=== PATIENT | female | born 1975 | race Two or more races ===

== ENCOUNTER → 2016-12-14 08:05 | Outpatient (CLI) | payer MEDICAID ==
[~2016-12-14 08:05] MED LIST: BACLOFEN10 MG PO; HYDROCODONE-APA1 TAB PO; MIRAPEX0.25 MG PO; PREVACID30 MG PO; ZOLOFT100 MG PO; ZYRTEC10 MG PO; [UNRECOGNIZED DRUG - OTHER]
--- NOTE | 2016-12-15 08:23 | EMG ---
PATIENT:PADMINI FRANZ DATE OF SERVICE: 12/14/16 MEDICAL RECORD: [id number] DATE OF : 77 LOCATION: [facility] ADMISSION DATE: REFERRING PHYSICIAN: MILAN VALDES MD INTERPRETING PHYSICIAN: MIKIE OSBORN MD DATE OF SERVICE: 12/14/2016 REFERRED BY: Dr. Valdes as an outpatient. DATE OF : 1975 DATE OF EXAMINATION: 12/14/2016 ELECTROMYOGRAPHIC DATA: Electromyographic examination is limited to both upper extremities. In the right upper extremity, right median motor stimulation elicits a compound motor action potential with a distal latency of 4.9 milliseconds, peak amplitude of 7 millivolts, and calculated conduction velocity of 51 meters per second. Right ulnar motor stimulation elicits a compound motor action potential with a distal latency of 2.7 milliseconds, peak amplitude of 8 millivolts, and calculated conduction velocity of 65 meters per second. Right ulnar motor stimulation across the elbow fails to elicit evidence of conduction block at this level. Antidromic right median and sensory stimulation elicits a response with a distal latency of 5.2 milliseconds, amplitude of 8 microvolts and the calculated conduction velocity of 50 meters per second. Antidromic right ulnar sensory stimulation elicits a response with a distal latency of 3.0 milliseconds, amplitude of 11 microvolts and calculated conduction velocity of 58 meters per second. The right median F wave has a latency of 29 milliseconds. In the left upper extremity, left median motor stimulation elicits a compound motor action potential with a distal latency of 3.4 milliseconds, peak amplitude of 9 millivolts, and calculated conduction velocity of 53 meters per second. Left ulnar motor stimulation elicits a compound motor action potential with a distal latency of 2.6 milliseconds, peak amplitude of 9 millivolts, and calculated conduction velocity of 57 meters per second. Left ulnar motor stimulation across the elbow fails to elicit evidence of conduction block at this level. Antidromic left median sensory stimulation elicits a response with a distal latency of 3.8 milliseconds, amplitude of 20 microvolts and the calculated conduction velocity of 54 meters per second. The antidromic left ulnar sensory stimulation elicits a response with a distal latency of 3.2 milliseconds, amplitude of 30 microvolts and the calculated conduction velocity of 57 meters per second. The left median F wave has a latency of 29 milliseconds. Needle electrode examination is limited to both upper extremities as well. Muscles interrogated include the abductor pollicis brevis, first dorsal interosseous, abductor digiti minimi, pronator teres, biceps brachii, triceps and deltoid. There is no abnormality of insertional activity and no abnormal spontaneous activity is seen in all muscles interrogated. Motor unit potential morphology and the pattern of motor unit potential firing and recruitment is normal in all muscles sampled. 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 On the left, all values fall within normal limits. There is a discrepancy between the median motor and sensory distal latencies as compared to the ipsilateral ulnar motor and sensory distal latencies. While not diagnostic, this is suggestive of minimally severe carpal tunnel syndrome on the left as well. There is no electrical evidence of a superimposed cervical radiculopathy or other lesion of the lower motor neuron in the upper extremities at this time. There is no evidence of active denervation. TRANSINT:[id number] Voice Confirmation ID: [id number] DOCUMENT ID: [id number] MIKIE OSBORN MD at 0823 CC: [id number] DICTATION DATE: 12/14/16907 RETAIL MAINTENANCE TECHNICIAN: 12/14/16 1019 DEP CLI 12/14/16 [facility] [address] [place] [address]
[2017-01-23 07:23] VITALS: BMI 38.7
== END | disposition home or self-care (01) ==
LOC: D.CN 08:00
DX: R20.0 Anesthesia of skin (principal)

== ENCOUNTER 2017-01-23 06:44 | Day surgery (SDC) | payer MEDICAID ==
[~2017-01-23] VITALS: Ht 162.6 cm; Wt 102.1 kg
[~2017-01-23 06:44] MED LIST changes: -BACLOFEN10 MG PO; -HYDROCODONE-APA1 TAB PO; -PREVACID30 MG PO
[2017-01-23] MEDS ORDERED: BACLOFEN10 MG PO (07:19)
[2017-01-23] MEDS ORDERED: PREVACID30 MG PO (07:19)
[2017-01-23 07:20] LABS: HEMATOCRIT 38.3 % (36.0-48.0); HEMOGLOBIN 12.4 g/dL (12-16)
[2017-01-23 07:23] VITALS: BP 132/79; Ht 162.6 cm; Wt 102.1 kg
[2017-01-23] MEDS ORDERED: HYDROCODONE-APA1 TAB PO (09:38)
--- NOTE | 2017-01-23 11:36 | OP ---
PATIENT NAME: PADMINI FRANZ MEDICAL RECORD: [id number] :[birth year] LOCATION:[facility] ADMISSION DATE: SURGEON: YOLANDE DAVENPORT MD DATE OF OPERATION: 01/23/2017 PREOPERATIVE DIAGNOSIS: Right carpal tunnel syndrome. POSTOPERATIVE DIAGNOSIS: Right carpal tunnel syndrome. PROCEDURE PERFORMED: Right carpal tunnel release. SURGEON: Anthony Davenport MD. ANESTHESIA: TIVA with local. CONDITION: She tolerated the procedure well, was transferred to recovery room in stable condition at termination of procedure. INDICATIONS: This is a pleasant 41-year-old female with numbness and tingling in her median nerve distribution. She has positive EMG. This has been bothering her enough that she wants to go ahead and have it released. We discussed risks, benefits, and alternatives. She understood and wished to proceed. OPERATIVE REPORT: The patient was taken to the operating room, placed in a supine position. TIVA anesthesia was obtained. Right arm was confirmed to be the correct arm, following which she was prepped and draped in the normal fashion. After this was accomplished, she had her carpal tunnel region infiltrated locally with 0.25% Marcaine and 0.5% lidocaine plain. I then folded her ring finger down and made a bella on the radial side of the ring finger then made an incision in her palm in line essentially with this. This was taken down. Transverse carpal ligament was identified. A hemostat was placed below it. Transverse carpal ligament was then transected down onto the hemostat. Once this was done, the nerve was visualized. It was clearly intact, visualized that the ligament was released. I therefore irrigated and closed it with 3-0 Prolene, placed her in a volar splint. She was awakened and transferred to the recovery room in stable condition, having tolerated the procedure well. TRANSINT:[id number] Voice Confirmation ID: [id number] DOCUMENT ID: [id number] YOLANDE DAVENPORT MD at 1136 CC: [id number] DICTATION DATE: 01/23/17 0943 ENGRAVER PANTOGRAPH: 01/23/17 1049 [facility] [address] [place] [address]
--- NOTE | 2017-01-23 12:39 | NUR ---
1045 IV DC WITH CATHER TIP INTACT
== END 2017-01-23 11:00 | disposition home or self-care (01) ==
LOC: D.OPS 06:44 → D.PAN 08:30 → D.OPS 09:00 → D.PAN 11:30 → D.OPS 02-09 09:00
PROVIDERS: Anesthesiology
DX: G56.01 Carpal tunnel syndrome, right upper limb (principal)

== ENCOUNTER 2019-02-16 01:18 | Emergency (ER) | payer BC ==
[~2019-02-16] VITALS: Ht 162.6 cm; Wt 104.5 kg
[~2019-02-16 01:18] MED LIST changes: +BACLOFEN10 MG PO; +HYDROCODONE-APA1 TAB PO; +PREVACID30 MG PO
[2019-02-16 01:25] VITALS: Ht 162.6 cm; Wt 104.5 kg
[2019-02-16] MEDS ORDERED: PROZAC20 MG PO (01:27)
[2019-02-16] MEDS ORDERED: OMEPRAZOLE20 M1 (01:27)
[2019-02-16] MEDS ORDERED: LISINOPRIL30 MG PO (01:28)
[2019-02-16 02:03] LABS: BASOPHILS 0.3 % (0-2); EOSINOPHILS 4.8 % (0-7); HEMATOCRIT 33.7 % (36.0-48.0); HEMOGLOBIN 10.9 g/dL (12-16); LYMPHOCYTES 35.7 % (15-50); MCH 26.1 pg (26.0-34.0); MCHC 32.3 g/dL (31.0-37.0); MCV 80.8 fL (80.0-100.0); MEAN PLATELET VOLUME 11.8 fL (7.4-10.4); MONOCYTES 6.7 % (2-11); NEUTROPHILS 52.5 % (40-80); PLATELET COUNT 245 10x3/uL (130-400); RBC 4.17 10x6/uL (4.00-5.40); WBC 6.1 10x3/uL (4.8-10.8)
[2019-02-16 02:09] LABS: APPEARANCE CLEAR (CLEAR); BACTERIA NONE SEEN /hpf (NONE SEEN); BILIRUBIN NEGATIVE (NEGATIVE); COLOR YELLOW (YELLOW); EPITHELIAL CELLS 0-5 /hpf (0-5); GLUCOSE NEGATIVE (NEGATIVE); KETONE NEGATIVE (NEGATIVE); NITRITE NEGATIVE (NEGATIVE); PROTEIN NEGATIVE (NEGATIVE); RED CELLS - URINE RARE /hpf (0-5); SPECIFIC GRAVITY 1.025 (1.005-1.020); UROBILINOGEN NORMAL (NORMAL)
[2019-02-16 02:16] LABS: ALBUMIN 2.9 g/dL (3.4-5.0); ALKALINE PHOSPHATASE 93 U/L (46-116); ALT (SGPT) 80 U/L (10-68); BILIRUBIN - TOTAL 0.45 mg/dL (0.2-1.3); CALC OSMOLALITY 287 mosm/kg (275-300); CALCIUM 8.3 mg/dL (8.5-10.1); CARBON DIOXIDE 25.9 mmol/L (21.0-32.0); CHLORIDE - SERUM 108 mmol/L (98-107); CREATININE - SERUM 0.7 mg/dL (0.6-1.3); GLUCOSE 98 mg/dL (74-106); POTASSIUM - SERUM 3.7 mmol/L (3.5-5.1); PROTEIN - SERUM 6.9 g/dL (6.4-8.2); SODIUM 144 mmol/L (136-145); UREA NITROGEN 14 mg/dL (7-18); eGFR NON AFRICAN AMERICAN > 90 mL/min (90-120)
[2019-02-16 02:21] LABS: AMYLASE - SERUM 45 U/L (25-115); LIPASE 168 U/L (73-393)
[2019-02-16 02:22] LABS: TROPONIN-I < 0.017 ng/mL (0.000-0.060)
[2019-02-16] MEDS ORDERED: ZOFRAN ODT4 MG/UDTAB PO (04:40)
[2019-02-16] MEDS ORDERED: KEFLEX500 MG PO (04:40)
[2019-02-16] MEDS ORDERED: FLORASTOR250 MG PO (04:40)
[2019-02-16] MEDS ORDERED: MACROBID100 MG PO (04:40)
[2019-02-16 05:04] VITALS: BP 118/72
== END 2019-02-16 05:05 | disposition home or self-care (01) ==
LOC: D.ER 01:18
PROVIDERS: Family Medicine
DX: N39.0 Urinary tract infection, site not specified (principal); R10.9 Unspecified abdominal pain; R11.2 Nausea with vomiting, unspecified; R19.7 Diarrhea, unspecified